=== PATIENT | male | born 1970 | race Caucasian/White ===

== ENCOUNTER 2017-02-09 15:51 | Emergency (ER) | payer SELFPAY ==
--- NOTE | 2017-02-09 16:13 | RAD ---
THREE VIEWS LEFT ANKLE: CLINICAL HISTORY: Injury. FINDINGS: There is prominent soft tissue swelling, laterally. There is a minimally displaced, transversely [place] ented distal fibular fracture. Joint capsular distention at the left ankle present. There is a dors al calcaneal enthesophyte. No abnormal widening of the mortise. IMPRESSION: 1. Minimally displaced distal fibular fracture with prominent overlying lateral soft tissue swelling . 2. Joint capsular distention. POS: [facility]
[2017-02-09] MEDS ORDERED: HYDROcodone/Acetaminophen 5/325 mg Tablet ONE (16:45)
== END 2017-02-09 17:45 | disposition home or self-care (01) ==
LOC: NAV ERS 15:51
DX: S82.832A Other fracture of upper and lower end of left fibula, initial encounter for closed fracture (principal); F17.210 Nicotine dependence, cigarettes, uncomplicated; X50.9XXA Other and unspecified overexertion or strenuous movements or postures, initial encounter